=== PATIENT | female | born 1965 ===

== ENCOUNTER → 2022-11-20 15:37 | Outpatient (CLI) | payer OTHER, SELFPAY ==
--- NOTE | 2022-11-20 | DI.US.S_ITS ---
PROCEDURE: US CAROTID DOPPLER BI INDICATIONS: CAROTID BRUITS TECHNIQUE: Color and pulse Doppler interrogation was performed of both carotid systems, with image documentation and velocity measurements. COMPARISON: None. FINDINGS: Stenosis calculations are based on SRU ([employer] in [employer]) criteria. Right side: Brachial blood pressure: 134/72 mm Hg. Common carotid artery peak systolic velocity: 69 cm/sec. Internal carotid artery peak systolic velocity: 68 cm/sec. Internal carotid artery end diastolic velocity: 27 cm/sec. External carotid artery peak systolic velocity: 59 cm/sec. ICA/CCA peak systolic ratio: 1.0. Gayle scale imaging description: No significant atherosclerotic plaques are seen. Percent internal carotid artery stenosis: Normal. Vertebral artery: Flow direction is antegrade. Left side: Brachial blood pressure: 130/77 mm Hg. Common carotid artery peak systolic velocity: 76 cm/sec. Internal carotid artery peak systolic velocity: 58 cm/sec. Internal carotid artery end diastolic velocity: 23 cm/sec. External carotid artery peak systolic velocity: 59 cm/sec. ICA/CCA peak systolic ratio: 0.8. Gayle scale imaging description: Very mild atherosclerotic plaques are seen in distal common carotid artery and proximal internal carotid artery. Percent internal carotid artery stenosis: Normal Vertebral artery: Flow direction is antegrade. IMPRESSION: No hemodynamically significant stenosis is seen in bilateral internal carotid arteries. Dictated by: Jarrell Glez M.D. on 11/20/2022 at 16:55 Approved by: Jarrell Glez M.D. on 11/20/2022 at 16:56
== END ==
PROVIDERS: PCP Family Medicine; Referring Provider Family Medicine; Visit Provider Family Medicine
DX: R09.89 Other specified symptoms and signs involving the circulatory and respiratory systems (principal)
CPT/HCPCS: 93880